=== PATIENT | male | born 1985 | race Caucasian/White ===

== ENCOUNTER → 2022-08-16 12:50 | Outpatient (BNVA) | payer OTHER, SELFPAY | PROVIDERS: PCP Family Medicine; Visit Provider Internal Medicine Cardiovascular Disease | DX: G90.A Postural orthostatic tachycardia syndrome [POTS] (principal); R00.0 Tachycardia, unspecified; E11.9 Type 2 diabetes mellitus without complications; Z79.84 Long term (current) use of oral hypoglycemic drugs; E78.5 Hyperlipidemia, unspecified; Z87.891 Personal history of nicotine dependence | CPT/HCPCS: 93005; 99204 ==

== ENCOUNTER → 2022-12-04 10:04 | Outpatient (BNVA) | payer OTHER, SELFPAY | PROVIDERS: PCP Family Medicine; Visit Provider Podiatrist Foot & Ankle Surgery | DX: M21.42 Flat foot [pes planus] (acquired), left foot (principal); M21.612 Bunion of left foot; M20.41 Other hammer toe(s) (acquired), right foot; M20.42 Other hammer toe(s) (acquired), left foot | CPT/HCPCS: 73610; 73620; 99204 ==

== ENCOUNTER 2023-02-06 09:58 | Outpatient (CLI) | payer OTHER, SELFPAY ==
--- NOTE | 2023-02-06 10:07 | USCV_ITS ---
Carl Dubois Age: 37 Gender: M : 1985 Exam Date: 02/06/2023 10:46 Ordering Phys: Mikel Palomino XX Technologist: Josh Chavarria [place] [facility] [place]: arrhythmia BP: 124 / 80 HR: 92 Rhythm: Sinus Technical Quality: Adequate MEASUREMENTS (Male / Female) Normal Values 2D ECHO LVOT Diameter 2.0 cm LV Ejection Fraction MOD 2C 62.8 % LV Ejection Fraction 2C AL 62.3 % LA Diameter 3.0 cm LA Width 2.3 cm LA Height 4.7 cm RA Width 2.4 cm RA Height 4.2 cm Aorta at Sinotubular Diameter 2.4 cm IVC Diameter 1.5 cm M-MODE Aortic Annulus Diameter 3.0 cm LA Ao Ratio MM 1.0 MV E Point Septal Separation 0.4 cm DOPPLER AV Peak Velocity 114.0 cm/s LVOT Peak Velocity 112.0 cm/s AV Area Cont Eq vti 2.9 cm squared AV Area Cont Eq pk 3.2 cm squared MV Peak Velocity 82.0 cm/s MV Area PHT 3.9 cm squared Mitral E to A Ratio 0.8 MV E' Velocity 43.0 cm/s Mitral E to MV E' Ratio 5.0 Mitral E to LV E' Lateral Ratio 4.6 Mitral E to LV E' Septal Ratio 5.4 TR Peak Velocity 175.7 cm/s TR Peak Gradient 12.3 mmHg TR Mean Velocity 139.7 cm/s TR Mean Gradient 8.5 mmHg TR Velocity Time Integral 33.7 cm Right Atrial Pressure 3.0 mmHg Pulmonary Artery Systolic Pressu 15.3 mmHg PV Peak Velocity 107.7 cm/s RV Acceleration Time 0.1 s RV Ejection Time 0.3 s RV AcT/ET 0.5 FINDINGS Left Ventricle Normal left ventricular size, systolic function and wall thickness, with no regional wall motion abnormalities. Left ventricular ejection fraction is estimated at 60 %. Normal diastolic function. Right Ventricle Normal right ventricular size and systolic function. RVSP could not be calculated due to incomplete tricuspid regurgitation velocity profile. Right Atrium Normal right atrial size. Left Atrium Normal left atrial size. Mitral Valve Structurally normal mitral valve. No mitral valve stenosis. No mitral valve regurgitation. Aortic Valve Structurally normal trileaflet aortic valve. No aortic valve stenosis. No aortic valve regurgitation. Tricuspid Valve Structurally normal tricuspid valve. No tricuspid valve stenosis. Trace tricuspid valve regurgitation. Pulmonic Valve Structurally normal pulmonic valve. No pulmonary valve stenosis. No pulmonary valve regurgitation. Pericardium No pericardial effusion. Aorta Normal size aortic root and proximal ascending aorta. IVC Normal IVC dimension with >50% respiratory change of the inferior vena cava. CONCLUSIONS 1. Normal left ventricular size, systolic function and wall thickness, with no regional wall motion abnormalities. Left ventricular ejection fraction is estimated at 60 %. Normal diastolic function. 2. No prior similar studies to compare. Shraddha Erickson MD (Electronically Signed) Final Date: 09 February 2023 11:30 S
--- NOTE | 2023-02-07 09:15 | ECG_ITS ---
[facility] Test Date: 2023-02-07 Pat Name: aCrl Dubois Department: Room: Gender: Male [employer] Ins[employer] Helper: : 1985 Requested By: Mikel Palomino Order Number: [id number] Tommy MD: Matthew Cade M.D. Measurements Intervals Fork Rate: 92 P: 69 MT: 158 QRS: 77 QRSD: 94 T: 78 QT: 331 QTc: 411 Interpretive Statements SINUS RHYTHM No previous ECG available for comparison Electronically Signed On 02-07-2023 13:55:46 CDT by Matthew Cade M.D. [email or web address]
== END 2023-02-06 09:59 | disposition home or self-care (01) ==
PROVIDERS: PCP Family Medicine; Visit Provider Chiropractor
DX: I49.9 Cardiac arrhythmia, unspecified (principal)
CPT/HCPCS: 93005; 93306

== ENCOUNTER → 2023-02-14 13:50 | Outpatient (BNVA) | payer OTHER, SELFPAY | PROVIDERS: PCP Family Medicine; Visit Provider Internal Medicine Cardiovascular Disease | DX: G90.A Postural orthostatic tachycardia syndrome [POTS] (principal) | CPT/HCPCS: 99214 ==

== ENCOUNTER → 2023-02-23 13:56 | Outpatient (BNVA) | payer OTHER, SELFPAY | PROVIDERS: PCP Family Medicine; Visit Provider Podiatrist Foot & Ankle Surgery | DX: M21.42 Flat foot [pes planus] (acquired), left foot (principal); M21.612 Bunion of left foot; M20.41 Other hammer toe(s) (acquired), right foot; M20.42 Other hammer toe(s) (acquired), left foot | CPT/HCPCS: 99213 ==

== ENCOUNTER → 2023-05-21 09:21 | Outpatient (BNVA) | payer OTHER, SELFPAY | PROVIDERS: PCP Family Medicine; Visit Provider Podiatrist Foot & Ankle Surgery | DX: M25.572 Pain in left ankle and joints of left foot; M21.42 Flat foot [pes planus] (acquired), left foot; M21.612 Bunion of left foot; M20.42 Other hammer toe(s) (acquired), left foot | CPT/HCPCS: 99213 ==

== ENCOUNTER 2024-02-25 19:12 | Emergency (ER) | payer OTHER, SELFPAY ==
[2024-02-25] VITALS (7 sets, daily range): BP systolic 110–133; BP diastolic 75–91; PULSE 90–102; RESP 13–19; TEMP 36.6; O2SAT 92–99
--- NOTE | 2024-02-25 20:59 | CTR_ITS ---
PROCEDURE INFORMATION: Exam: CT Head Without Contrast Exam date and time: 02/25/2024 10:19 PM Age: 38 years old Clinical indication: Pain; Headache; Additional info: COFFEY x3 days, no HX TECHNIQUE: Imaging protocol: Computed tomography of the head without contrast. Radiation optimization: All CT scans at this facility use at least one of these dose optimization techniques: automated exposure control; mA and/or kV adjustment per patient size (includes targeted exams where dose is matched to clinical indication); or iterative reconstruction. COMPARISON: No relevant prior studies available. RADIATION DOSE METRICS: Total DLP (mGy-cm): 1111.8 FINDINGS: Brain: Normal. No hemorrhage. Unremarkable white matter. No mass effect. Cerebral ventricles: No ventriculomegaly. Paranasal sinuses: Visualized sinuses are unremarkable. No fluid levels. Mastoid air cells: Visualized mastoid air cells are well aerated. Bones: Unremarkable. No acute fracture. Soft tissues: Unremarkable. CT/CT head wo con* [id number] IMPRESSION: No acute intracranial abnormality.
--- NOTE | 2024-02-25 21:07 | W.ED.HA ---
HPI - Headache General: Chief Complaint: Headache Stated Complaint: High BP Time Seen by Provider: 02/25/24 20:45 Source: patient Mode of arrival: ambulatory Limitations: no limitations History of Present Illness: Patient is a 38-year-old male who presents to the emergency department complaining of headache for the past 2 days. Patient notes that the pain is noted to the bilateral temporal area, and he has no neurological symptoms reported. However he does report a history of dysautonomia as well as POTS, and that it is difficult to distinguish if any of the symptoms are worsening or due to the headache. He has no history of migraines. He notes multiple panic attacks today related to the pain, and does report chronic history of anxiety. He denies any numbness, weakness, tingling, visual changes, seizures, or any other concerning symptoms. Family member in the room also states that patient has been acting normally and has not noticed any speech impediments or facial asymmetry. No other symptoms reported this time, patient notes not taking anything for the symptoms. The pain is intermittent but states that it is present on examination. Vitals are normal and he is alert and oriented. MD elicited complaint: headache Onset (ago): day(s) Onset description: suddenly Location: temporal Severity: moderate Quality & Timing: throbbing Exacerbating factors: none Relieving factors: nothing Context: occurred at rest Associated symptoms: Reports no associated symptoms; Deny chest pain, fever(s), lightheadedness, nausea, rash or vomiting Treatments prior to arrival: none Review of Systems General: Reports: 10 or more systems reviewed and unremarkable except in HPI and below Const: Denies: fever(s), chills or fatigue Eyes: Denies: change in vision ENMT: Denies: throat pain, ear or mastoid pain or nasal discharge Card: Denies: chest pain, palpitations, swelling of feet/ankles or lightheadedness Resp: Denies: dyspnea, productive cough or wheezing GI: Denies: abdominal pain, nausea, vomiting, diarrhea or constipation : Denies: flank pain, difficulty urinating, dysuria or urinary frequency Musc: Denies: neck pain, back pain or joint pain Skin/Breast: Denies: rash Neuro: Reports: headache(s); Denies: numbness in extremities or weakness in extremities Psych: Reports: anxiety and panic attacks PFS ED PFSH: Medical History Dyslipidemia Tachycardia DDD (degenerative disc disease) POTS (postural orthostatic tachycardia syndrome) DM type 2 (diabetes mellitus, type 2) Surgical History History of ankle surgery Social History Smoking and tobacco/nicotine status: former use of tobacco/nicotine Physical Exam Const: COMMON NORMALS: no acute distress, patient oriented x3 and no limitations GENERAL APPEARANCE: cooperative, comfortable and well developed ORIENTATION/CONSCIOUSNESS: Yes awake, Yes oriented to person, Yes oriented to place and Yes oriented to time HENMT: COMMON NORMALS: normocephalic, atraumatic and hearing grossly normal bilaterally HEAD & SCALP: normocephalic and atraumatic Eye: COMMON NORMALS: Equal, round and reactive pupils present, EOMs intact bilaterally and conjunctivae normal CONJUNCTIVA: Yes conjunctivae normal PUPIL: Yes Equal, round and reactive pupils present Neck/C-Spine: COMMON NORMALS: full ROM, supple and no JVD Resp: COMMON NORMALS: normal respiratory effort, No retractions, No use of accessory muscles and clear to auscultation bilaterally AUSCULTATION: clear to auscultation bilaterally Cardio: COMMON NORMALS: no JVD, regular rate, regular rhythm, No clicks present (Cardio), No murmurs present (Cardio) and No rub (Cardio) RATE: regular rate RHYTHM: regular rhythm GI: COMMON NORMALS: Normal to inspection, nondistended, normoactive bowel sounds present, Soft to palpation and non-tender AUSCULTATION: Yes normoactive bowel sounds PALPATION: Yes Soft to palpation RECTAL EXAM: Yes deferred Extremity: COMMON NORMALS: normal to inspection, full ROM and capillary refill normal Neuro: COMMON NORMALS: patient oriented x3, CN's II-XII intact bilaterally, moves all extremities, no focal motor deficits and no sensory deficits noted SENSORIUM/ORIENTATION: Yes oriented to person, Yes oriented to place and Yes oriented to time Psych: COMMON NORMALS: mental status grossly normal and Normal thought process present THOUGHT PROCESS: Normal thought process present Skin: COMMON NORMALS: no rashes or lesions noted GENERAL SKIN EXAM: no rashes or lesions noted Course Vital Signs: Vital signs: Vital Signs Temperature 98 F 02/25/24 19:33 Pulse Rate 92 02/25/24 22:00 Respiratory Rate 16 02/25/24 22:00 Blood Pressure 119/80 02/25/24 22:00 Pulse Oximetry 95 02/25/24 22:00 Oxygen Delivery Me thod Room Air 02/25/24 21:00 MDM - Headache Medical Decision Making Patient presented with a few days of a headache, denies any history of migraines or tension headaches. No neurological deficits reported, but did state he has been increasingly anxious and has had panic attacks a day related to the pain. CT of the head did not reveal any acute intracranial normality. Patient was started on a migraine cocktail and after recheck states that he feels much better. He will be discharged home and instructed to follow-up with primary care for further evaluation. He was also concerned of his blood pressure, however it has been essentially within normal limits today here in the emergency department. Rest of his vitals have been normal and condition has been stable. His neurological examination additionally was normal. Reasons to return were discussed in thorough detail Lab Data Radiology Impressions Head CT 02/25/24 20:59 IMPRESSION: No acute intracranial abnormality. All radiology interpretation(s) finalized by discharge Discharge Plan Discharge Patient Disposition: Home Clinical Impression: Headache Condition: Stable Prescriptions: No Action atorvastatin 80 mg tablet 40 mg PO DAILY carvedilol 25 mg tablet 12.5 mg PO BID Rx Instructions: must administer with a meal/food imipramine HCl 50 mg tablet 50 mg PO .HS Janumet 50-1,000 mg tablet 1 tab PO BID glipizide 2.5 mg tablet extended release 24hr 2.5 mg PO BID Rx Instructions: 5mg am 2.5mg pm meloxicam 15 mg tablet 15 mg PO DAILY 30 Days Qty: 30 2RF (DME) Custom Sole Supports See Rx Instructions .Route .MEDSUPPLY Qty: 1 0RF Rx Instructions: As directed by [facility]O Discharge Orders: Discharge ED (Routine); Ordered 02/25/24 Ordered By: Nathan Cr Referrals: Shonna Ovalle MD [Primary Care Provider] - Discharge Diet: Usual diet Discharge Activity: Increase activity as tolerated Patient Instructions: Acute Headache (ED) Activity Restrictions/Additional Instructions: Warm compress to back of neck as needed. Also take Tylenol and ibuprofen for any pain. Avoid any strenuous exercise or overuse of the neck muscles while you allow it time to rest. Please follow-up with primary care as discussed for further outpatient evaluation. Return if you develop any new or concerning symptoms. Coding Level of Care Code ED Adoption Manager for Jesús White
[2024-02-25] MEDS: sodium chloride 0.9% 1,000 ML 999 ML IV (21:14)
[2024-02-25] MEDS: dexamethasone 10 mg/mL INJ 8 MG IVP (21:16)
[2024-02-25] MEDS: diphenhydrAMINE 50 mg/mL SDV 1mL IVP (21:17)
[2024-02-25] MEDS: metoclopramide 5 mg/mL SDV 2 mL 10 MG IVP (21:17)
[2024-02-25] MEDS: ketorolac 60 mg/2 mL INJ 30 MG IVP (21:19)
[2024-02-26] VITALS: BP 117/73; PULSE 90; RESP 18; O2SAT 96
[2024-02-26 00:30] VITALS: BP 108/68; PULSE 95; RESP 17; O2SAT 97
== END 2024-02-26 00:46 | disposition home or self-care (01) ==
PROVIDERS: Emergency Provider Physician Assistant; PCP Family Medicine
DX: R51.9 Headache, unspecified (principal); Z79.84 Long term (current) use of oral hypoglycemic drugs; E78.5 Hyperlipidemia, unspecified; E11.9 Type 2 diabetes mellitus without complications; Z87.891 Personal history of nicotine dependence
CPT/HCPCS: 70450; 96361; 96374; 96375; 99285; J1100; J1200; J1885; J2765; J7030

== ENCOUNTER → 2024-05-27 08:25 | Outpatient (BNVA) | payer OTHER, SELFPAY | PROVIDERS: PCP Family Medicine; Visit Provider Podiatrist Foot & Ankle Surgery | DX: M79.671 Pain in right foot (principal); M79.672 Pain in left foot; M21.42 Flat foot [pes planus] (acquired), left foot; M21.619 Bunion of unspecified foot; M20.41 Other hammer toe(s) (acquired), right foot; M20.42 Other hammer toe(s) (acquired), left foot | CPT/HCPCS: 99213 ==

== ENCOUNTER 2024-11-27 19:08 | Emergency (ER) | payer OTHER, SELFPAY ==
[2024-11-27 19:35] VITALS: BP 115/77; PULSE 93; TEMP 37.2; O2SAT 98; BMI 23.7
--- NOTE | 2024-11-27 19:43 | XRR_ITS ---
PROCEDURE INFORMATION: Exam: XR Left Ribs with PA Chest Exam date and time: 11/27/2024 7:52 PM Age: 39 years old Clinical indication: Injury or trauma; Fall; Rib area, left side; Blunt trauma; Additional info: Injury/pain TECHNIQUE: Imaging protocol: Radiologic exam of the left ribs with PA chest. Views: 3 views COMPARISON: No relevant prior studies available. FINDINGS: Lungs: Unremarkable. No consolidation. Pleural spaces: Unremarkable. No pleural effusion. No pneumothorax. Heart/Mediastinum: Unremarkable. No cardiomegaly. Bones/joints: Negative exam for left-sided rib fracture. XR/XR ribs LT mn 3V w [id number] IMPRESSION: No acute findings.
--- NOTE | 2024-11-27 22:53 | W.ED.CHESTPA ---
HPI - Chest Pain General: Chief Complaint: Fall Stated Complaint: fall left ribs popped Time Seen by Provider: 11/27/24 22:35 Source: patient and family Mode of arrival: ambulatory Limitations: no limitations History of Present Illness: Patient is a nice 39-year-old male who presents to ED today with complaint of left rib pain. Patient states earlier today reaching into the truck bed of his pickup and was leaning over the metal side when he heard a pop to his left ribs and has had tenderness since. He is not complaining of shortness of breath or difficulty breathing. Pain somewhat worsened with movement and deep inhalation. MD complaint: chest pain (rib pain) Onset (ago): hour(s) Timing of current episode: constant Prior episodes: No Pain location: lateral Pain radiation: none Severity: mild Relieving factors: nothing Associated symptoms: Reports no associated symptoms; Deny abdominal pain, dyspnea, palpitations or syncope Treatment prior to arrival: none Related Data Home Medications ?Medication ?Instructions ?Recorded ?Confirmed atorvastatin 80 mg tablet 40 mg PO DAILY 08/16/22 05/27/24 carvedilol 25 mg tablet 12.5 mg PO BID 08/16/22 05/27/24 imipramine HCl 50 mg tablet 50 mg PO .HS 08/16/22 05/27/24 sitagliptin phosphate 50 1 tab PO BID 08/16/22 05/27/24 mg-metformin 1,000 mg tablet (Janumet) Previous Rx's ?Medication ?Instructions ?Recorded Custom molded functional orthotics #2 ea 08/11/24 Allergies Allergy/AdvReac Type Severity Reaction Status Date / Time empagliflozin (From Allergy ADR/ALGY-Hy Verified 11/27/24 19:39 Jardiance) potension Review of Systems Card: Reports: chest pain (L rib pain); Denies: palpitations, irregular heart rhythm, edema, swelling of feet/ankles, lightheadedness, syncope or pre-syncope Resp: Reports: pain on inspiration; Denies: dyspnea, productive cough, non-productive cough or chest congestion GI: Denies: abdominal pain : Denies: flank pain [facility] ED PFSH: Medical History Dyslipidemia Tachycardia DDD (degenerative disc disease) POTS (postural orthostatic tachycardia syndrome) DM type 2 (diabetes mellitus, type 2) Surgical History History of ankle surgery Social History Smoking and tobacco/nicotine status: former use of tobacco/nicotine Physical Exam Const: COMMON NORMALS: no acute distress, average body habitus, patient oriented x3, no limitations, healthy appearing, alert and well nourished GENERAL APPEARANCE: cooperative Chest: COMMONS NORMALS: normal inspection of the chest OTHER: mild pain to lateral lower L ribs; no crepitus, lung sounds normal Resp: COMMON NORMALS: normal respiratory effort and clear to auscultation bilaterally AUSCULTATION: clear to auscultation bilaterally Cardio: COMMON NORMALS: regular rate and regular rhythm RATE: regular rate RHYTHM: regular rhythm GI: COMMON NORMALS: Normal to inspection, nondistended, normoactive bowel sounds present, Soft to palpation and non-tender PALPATION: Yes Soft to palpation Neuro: COMMON NORMALS: patient oriented x3 SENSORIUM/ORIENTATION: Yes alert Course Vital Signs: Vital signs: Vital Signs Temperature 98.9 F 11/27/24 19:35 Pulse Rate 95 11/27/24 23:01 Respiratory Rate 16 11/27/24 23:01 Blood Pressure 110/76 11/27/24 23:01 Pulse Oximetry 97 11/27/24 23:01 Oxygen Delivery Me thod Room Air 11/27/24 19:35 MDM - Chest Pain Medical Decision Making XR L ribs/CXR unremarkable. Discussed conservative therapies at home. Return precautions discussed. Medical Records I reviewed the patient's medical records. Lab Data Radiology Impressions Ribs X-Ray 11/27/24 19:43 IMPRESSION: No acute findings. All radiology interpretation(s) finalized by discharge Discharge Plan Discharge Patient Disposition: Home Clinical Impression: Contusion of rib on left side Qualifiers: Encounter type: initial encounter Qualified Code(s): S20.212A - Contusion of left front wall of thorax, initial encounter Condition: Stable Prescriptions: No Action atorvastatin 80 mg tablet 40 mg PO DAILY carvedilol 25 mg tablet 12.5 mg PO BID Rx Instructions: must administer with a meal/food imipramine HCl 50 mg tablet 50 mg PO .HS Janumet 50-1,000 mg tablet 1 tab PO BID (DME) Custom molded functional orthotics See Rx Instructions .Route .MEDSUPPLY Qty: 2 0RF Rx Instructions: As directed by the alberto castro Discharge Orders: Discharge ED (Routine); Ordered 11/27/24 Ordered By: Elvira Oakes Referrals: Shonna Ovalle MD [Primary Care Provider] - Patient Instructions: Rib Contusion (ED) Print Language: [place]se Coding Level of Care Code ED Digital Design Engineer for Jesús White
[2024-11-27 23:01] VITALS: BP 110/76; PULSE 95; RESP 16; O2SAT 97
== END 2024-11-27 23:02 | disposition home or self-care (01) ==
PROVIDERS: Emergency Provider Physician Assistant; PCP Family Medicine
DX: S20.212A Contusion of left front wall of thorax, initial encounter (principal); Z87.891 Personal history of nicotine dependence; E78.5 Hyperlipidemia, unspecified; E11.9 Type 2 diabetes mellitus without complications; X58.XXXA Exposure to other specified factors, initial encounter
CPT/HCPCS: 71101; 99283

== ENCOUNTER → 2025-03-17 12:33 | Outpatient (BNVA) | payer OTHER, SELFPAY | PROVIDERS: PCP Family Medicine; Visit Provider Internal Medicine Cardiovascular Disease | DX: G90.A Postural orthostatic tachycardia syndrome [POTS] (principal); E11.9 Type 2 diabetes mellitus without complications; Z87.891 Personal history of nicotine dependence; Z79.84 Long term (current) use of oral hypoglycemic drugs | CPT/HCPCS: 99214 ==

== ENCOUNTER → 2025-05-27 08:34 | Outpatient (BNVA) | payer OTHER, SELFPAY | PROVIDERS: PCP Family Medicine; Visit Provider Podiatrist Foot & Ankle Surgery | DX: E11.42 Type 2 diabetes mellitus with diabetic polyneuropathy (principal); M21.42 Flat foot [pes planus] (acquired), left foot; M20.41 Other hammer toe(s) (acquired), right foot; M20.42 Other hammer toe(s) (acquired), left foot; M21.612 Bunion of left foot | CPT/HCPCS: 99213 ==